=== PATIENT | female | born 2000 | race Caucasian/White ===

== ENCOUNTER → 2024-04-01 | Outpatient (CLI) | payer OTHER ==
[~2024-04-01] MED LIST: AMOCLA250S GT; AMOCLA400S PO; AZIT100SU GT; AZIT100SU PO; AZIT200SU PO; CARB100CH PO; CARB100SU; CARB100SU PO; DIASTAT PR; Keppra PO; LAMO5; RXPROMSY GT
== END | disposition home or self-care (01) ==
LOC: LAB 16:56 → LAB SHORT 16:56
DX: G80.9 Cerebral palsy, unspecified (principal); R56.9 Unspecified convulsions
CPT/HCPCS: 87086; 87147